=== PATIENT | male | born 1975 | race American Indian/Alaskan Native ===

== ENCOUNTER 2020-05-10 10:50 | Emergency (ER) | payer MEDICAID ==
[2020-05-10 11:07] VITALS: BP 125/86
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
[2020-05-10] MEDS ORDERED: DIPHtheria,PERTUSSIS(ACELL),TETANUS VACCINE/PF 0.5 ML VIAL IM ONE (11:52)
[2020-05-10] MEDS ORDERED: TETANUS,DIPHTHERIA TOXOID ADULT 0.5 ML INJ IM SCH (12:00)
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
== END 2020-05-10 13:00 | disposition home or self-care (01) ==
LOC: ED 10:50
DX: S71.112A Laceration without foreign body, left thigh, initial encounter (principal); Z79.899 Other long term (current) drug therapy; W45.8XXA Other foreign body or object entering through skin, initial encounter; Y93.89 Activity, other specified; Y92.89 Other specified places as the place of occurrence of the external cause; Y99.8 Other external cause status
CPT/HCPCS: 90714; 90715